=== PATIENT | male | born 1960 | race Caucasian/White ===

== ENCOUNTER 2017-01-30 18:44 | Emergency (ER) | payer BC, OTHER ==
[~2017-01-30] VITALS: Ht 177.8 cm; Wt 83.5 kg
[2017-01-30 18:48] VITALS: BP 158/69; PULSE 74; TEMP 36.7; O2SAT 98; Ht 177.8 cm; Wt 83.5 kg
[2017-01-30] MEDS ORDERED: ATOR-24 PO (19:03)
[2017-01-30] MEDS ORDERED: METF500T5 PO (19:03)
[2017-01-30] MEDS ORDERED: LISI-461 PO (19:03)
--- NOTE | 2017-01-30 19:33 | DIAGNOSTIC IMAGING REPORT ---
R FOOT MIN 3 VIEWS ROUTINE HISTORY: 56 years-old Male R foot pain acute right-sided foot pain status post trauma. COMPARISON: None available. TECHNIQUE: 3 views of the right foot. FINDINGS: There is moderate Achilles enthesopathy. There is an acute transverse nondisplaced fracture involving the first distal phalangeal tuft with moderate soft tissue swelling. No opaque foreign body. IMPRESSION: 1. Acute transverse nondisplaced fracture involves the first distal phalangeal tuft. 2. Moderate Achilles enthesopathy The above report was generated using voice recognition software. It may contain grammatical, syntax or spelling errors. Electronically signed by: Travis Reyes M.D. 01/30/2017 7:32 PM Dictated Date/Time: 01/30/2017 7:30 PM
[2017-01-30] MEDS ORDERED: NORCO 5/325MG HOME PACK PO ONE (19:45)
--- NOTE | 2017-01-31 14:46 | EMERGENCY ROOM VISIT NOTE ---
ED Visit Note First contact with patient: 18:57 Chief Complaint: I hurt my right foot work today. History of Present Illness: Mr. Lieberman is a 56-year-old white male who ambulates into the ED with a limp complaining of right foot pain. Patient reports he was at work approximately 5-6 hours ago and accidentally dropped a tree on his foot. Since that time he has been having pain throughout the great toe. He describes his pain as a constant throbbing sensation and sharp with ambulation. He rates his discomfort 8/10. His pain is nonradiating. His pain worsens with palpation, ambulation over the distal phalanx and MTP joint. He has not identified any alleviating factors related to the pain. He has not taken any medication for pain prior to arrival at the hospital. He denies any associated symptoms including other foot pain, other toe pain, foot weakness/numbness/tingling. Additionally he denies any previous significant injuries or surgeries to the foot or great toe. Review of Systems: As noted above in history of present illness. Past Medical History: Diabetes, hypertension, unspecified skin disorder, status post unspecified knee surgery. Current Medications: Zestril, Lipitor and Glucophage. Allergies to Medications: Patient denies. Social History: Patient is currently employed; he feels safe in his home environment; he admits to tobacco use and denies alcohol use. Physical Examination: Vital Signs: Date Time Temp Pulse Resp B/P (MAP) Pulse Ox O2 Delivery O2 Flow Rate FiO2 01/30/17 18:48 36.7 74 18 158/69 98 Room Air GENERAL: 56-year-old male in mild to moderate distress due to pain, nontoxic- appearing, afebrile and hemodynamically stable. NEUROLOGICAL: Awake, alert and oriented to person, place and time. Answering questions appropriately and following commands. SKIN: Warm, dry and pink. No soft tissue open trauma noted. RIGHT FOOT: No gross bony deformity. Tenderness, ecchymosis and swelling throughout the first MTP, proximal phalange and distal flange of the great toe without gross bony deformity. No subungual hematoma. Patient did have full range of motion in flexion and extension of the MTP and interphalangeal joints. He was able to distinguish light sensations through all dermatomes of the toe and the rest of the foot. He requested that I do not blanches toe because of this pain. ED Course: Patient is assessed as noted above. Patient's medication list was reviewed. Patient was offered pain medication and refused. Right Foot X-Rays: Were read by myself and the radiologist showing acute transverse nondisplaced fracture of the first distal phalanx tuft. Radiologist also noted moderate Achilles enthesopathy. Patient was placed in a postop shoe; he reports he had crutches at home from a recent knee injury. Patient was educated about today's findings and instructed on his treatment plan ; he verbalizes understanding and agreement with this plan. Clinical Impression: Left great toe distal phalanx tuft fracture. Work related injury. Disposition: Patient discharged home in stable condition accompanied by his girlfriend; prior to departure he was reassessed and subjectively reported he was feeling better. Plan: Comfort measures including rest, ice, elevation and he was placed on a sliding pain medication scale of ibuprofen, acetaminophen and [place]; he was given appropriate narcotic precautions and his name was checked in the state database and no red flags were noted. Patient was encouraged to follow-up with his qi specialist for follow- up care and treatment. Patient was encouraged return ED for worsening/uncontrolled pain, uncontrolled swelling, foot/toe weakness/numbness/tingling or any new/concerning symptoms.
--- NOTE | 2017-02-03 13:20 | EDITING REQUIRED CODING QUERY ---
CODING QUERY To promote full compliance with coding requirements relating to patient care, provider participation is requested in all cases of bus dispatcher interstate uncertainty. Please assist us with the question(s) below: Coding Question(s): CC and HPI list injury to the RIGHT great toe. Final Impression lists LEFT great to. Please clarify correct laterality. Physician's Response(s): Right great toe fracture The laterality is R great toe fracture - MYRA WADDELL MD Thank you Roseanna Tolbert Principal Diagnosis: "_that condition established after study, to be chiefly responsible for occasioning the admission of the patient to the hospital for care." Co-Existing Principal Diagnosis: "_when two or more diagnoses equally meet the criteria for principal diagnosis as determined by the circumstances of admission, diagnostic work up, and/or therapy provided, and the Alphabetic Index, Tabular List, or another coding guideline does not provide sequencing direction, any one of the diagnoses may be sequenced first." "When the physician has documented what appears to be a current diagnosis in the body of the record, but has not included the diagnosis in the final diagnostic statement, the physician should be asked whether the diagnosis should be added." (Source [facility] 2 QTR90. p3-4)
== END 2017-01-30 20:00 | disposition home or self-care (01) ==
LOC: C.EDB 18:45 → C.EDD 20:00
DX: S92.424A Nondisplaced fracture of distal phalanx of right great toe, initial encounter for closed fracture (principal); W20.8XXA Other cause of strike by thrown, projected or falling object, initial encounter; Y99.0 Civilian activity done for income or pay; E11.9 Type 2 diabetes mellitus without complications; I10 Essential (primary) hypertension; F17.200 Nicotine dependence, unspecified, uncomplicated; Z79.84 Long term (current) use of oral hypoglycemic drugs